=== PATIENT | female | born 1970 | race Caucasian/White ===

== ENCOUNTER 2018-02-11 07:33 | Day surgery (SDC) | payer OTHER ==
[~2018-02-11] VITALS: Ht 175.3 cm; Wt 97.4 kg
[~2018-02-11 07:33] MED LIST: 24 HOUR ALLER15.8 ML; ALL DAY ALLERGY10 M1 PO; BIRTH CONTROL; DIPATR PO; HYDACE5 PO; MULVITMIND PO; NAPR550 PO; PARO10 PO; PROBIOTICS; PROM25 PO; PSEU120ER; Voltaren100 GM
== END 2018-02-11 10:00 | disposition home or self-care (01) ==
LOC: ORSCSDS 07:33
PROVIDERS: Internal Medicine Gastroenterology
PROC: 0DBH8ZX Excision of Cecum, Via Natural or Artificial Opening Endoscopic, Diagnostic (ICD-10-PCS; principal; 2018-02-11 08:45)
DX: Z86.010 Personal history of colon polyps (principal); Z80.0 Family history of malignant neoplasm of digestive organs; D12.0 Benign neoplasm of cecum; K57.30 Diverticulosis of large intestine without perforation or abscess without bleeding; K64.8 Other hemorrhoids
CPT/HCPCS: 88305; J7040; J7120